=== PATIENT | male | born 2000 | race Caucasian/White ===

== ENCOUNTER 2021-04-06 15:56 | Emergency (ER) | payer BC, SELFPAY ==
[2021-04-06 16:01] VITALS: BP 146/93; PULSE 74; RESP 16; TEMP 37.1; O2SAT 99
--- NOTE | 2021-04-06 16:15 | DI.RAD_ITS ---
Exam(s) XR SHOULDER RT COMPLETE 2+V EXAM: XR SHOULDER RT COMPLETE 2+V CLINICAL HISTORY: pain after fall. TECHNIQUE: 2D digital imaging was performed. COMPARISON: No exams were available for comparison FINDINGS: Four views of the right shoulder reveal no evidence of fracture nor dislocation. No abnormal soft ti ssue calcifications. No degenerative changes in the glenohumeral and AC joints. Bone density normal . No osseous lesions. No os acromiale. IMPRESSION: No significant radiograph findings in the right shoulder. DATA REPOSITORY: RADIATION DOSE DELIVERED:
--- NOTE | 2021-04-06 16:15 | DI.RAD_ITS ---
Exam(s) XR ELBOW RT COMPLETE EXAM: XR ELBOW RT COMPLETE CLINICAL HISTORY: pain after fall. TECHNIQUE: 2D digital imaging was performed. COMPARISON: No exams were available for comparison FINDINGS: There is no evidence of fracture nor joint effusion. No swelling of the olecranon bursa. Radial hea d appears unremarkable as does the capitellum. Epicondyles unremarkable. Bone density normal. No o sseous lesions. IMPRESSION: DATA REPOSITORY: RADIATION DOSE DELIVERED:
--- NOTE | 2021-04-06 16:30 | ED.GENADUL_ITS ---
Discharge Plan Disposition Patient Disposition: HOME Condition: Improving Discharge Details Clinical Impression: Contusion of elbow, right Primary Care Provider: Unknown,Unknown ED Provider: Naveed Vargas Home Meds and New Rx's Prescriptions: Continued montelukast [Singulair] 10 mg Tablet 10 mg PO DAILY RF: 0 Breo Ellipta 200-25 mcg/dose Blister With Device 1 inh INHALATION DAILY RF: 0 Discharge Instructions Instructions: Contusion in Adults (ED) Additional Instructions: Please remove Pravin bandage tonight and then may replace again tomorrow morning. May also use Band-Aid as we discussed for dressing. You may develop increased muscular soreness over the next 24 hours. Tylenol and/or ibuprofen as needed for pain. Return to the ER for any acute concerns. Medical Decision Making Otherwise healthy 20-year-old male slipped and fell off a stool, landing on his right elbow suffering an abrasion and pain. His tetanus is up-to-date. Did not injure himself in any other way. He has mild tenderness to the right anterior shoulder and with palpation of the right elbow. Patient given analgesic and ice, wound cleansed and dressed, referred for x-ray. No evidence of bony injury. Patient had wound cleansed and dressed, is abrasion without evidence of laceration. Discussed with him home management he is stable for discharge HPI General Mode of arrival: ambulatory . Date/Time Provider Initiated Documentation: 04/06/21 16:12 . Limitations to Documentation: no limitations . Information obtained by: patient . History of Present Illness 20 year old M presents to the emergency department with the chief complaint of Fall, right elbow injury, described as moderate, Quality is described as dull and constant, and is localized to the right and upper extremity. Patient reports no radiation. No relieving factors improve symptom(s), No exacerbating factors reported . Patient notes no other symptoms.. Patient did receive the following treatments prior to arrival, none Related Data Home Medications Medication Instructions Recorded Confirmed Breo Ellipta 1 inh INHALATION DAILY 04/06/21 04/06/21 montelukast [Singulair] 10 mg PO DAILY 04/06/21 04/06/21 Allergies Allergy/AdvReac Type Severity Reaction Status Date / Time No Known Allergies Allergy Unverified 04/06/21 16:08 General Stated Complaint: Laceration ASHLEY: 4 Review of Systems Narrative: Denies other injury. No neck/back/chest pain. [facility] Social History Smoking/Tobacco Use Status: Never Smoking risk assessment performed?: Yes Alcohol Intake: current Alcohol Intake frequency: a few times a month Alcohol type: beer Substance use type: marijuana Exam Narrative Exam Narrative: GEN: awake, alert, oriented 3. Pleasant, well groomed, interactive. HEAD: Normocephalic, atraumatic EYES: PERRL, EOMI NECK: Full ROM, no ELIZABETH, no menigismus CHEST/RESP: Nontender EXT: Full ROM, pain with palpation right elbow. There is abrasion present on the dorsal surface of the right elbow. No pain with resisted supination. Distal motor and sensory function is normal. Mild tenderness right anterior shoulder. Motor 5 out of 5 throughout. Neuro: Grossly normal neurologic exam, conversant, interactive. Psych: Speech fluent, thoughts congruent, affect normal Course Vital Signs Vital signs: Vital Signs Temperature 37.1 C 04/06/21 16:01 Pulse 74 04/06/21 16:01 Respiratory Rate 16 04/06/21 16:01 Blood Pressure 146/93 H 04/06/21 16:01 Pulse Oximetry 99 04/06/21 16:01 Temperature 37.1 C 04/06/21 16:01 Temperature Source Skin 04/06/21 16:01 Pulse 74 04/06/21 16:01 Respiratory Rate 16 04/06/21 16:01 Respiratory Effort 04/06/21 16:06 Blood Pressure 146/93 H 04/06/21 16:01 Blood Pressure Position Sitting 04/06/21 16:01 Pulse Oximetry 99 04/06/21 16:01 Oxygen Delivery Method Room Air 04/06/21 16:01 Oxygen Flow Rate 0 04/06/21 16:01 Pain Level 8 04/06/21 16:06
[2021-04-06] MEDS: Ibuprofen 800 MG TAB PO (16:37)
--- NOTE | 2021-04-06 17:47 | DI.VRAD_ITS ---
PROCEDURE INFORMATION: Exam: XR Right Elbow Exam date and time: 04/06/2021 4:30 PM Age: 20 years old Clinical indication: Other: Pain after fall TECHNIQUE: Imaging protocol: XR Right elbow. Views: 3 or more views. COMPARISON: CR XR SHOULDER RT COMPLETE 2+V 04/06/2021 5:04 PM FINDINGS: Bones/joints: Normal. Soft tissues: Normal. IMPRESSION: No acute findings. Dictated and Authenticated by: Zain Patel MD. Ordering:HARLEEN Lucio MD
--- NOTE | 2021-04-06 17:48 | DI.VRAD_ITS ---
PROCEDURE INFORMATION: Exam: XR Right Shoulder Exam date and time: 04/06/2021 4:30 PM Age: 20 years old Clinical indication: Other: Pain after fall TECHNIQUE: Imaging protocol: XR Right shoulder. Views: 2 or more views. COMPARISON: No relevant prior studies available. FINDINGS: Bones/joints: Normal. Soft tissues: Normal. IMPRESSION: No acute findings. Dictated and Authenticated by: Zain Patel MD. Ordering:HARLEEN Lucio MD
== END 2021-04-06 17:58 | disposition home or self-care (01) ==
PROVIDERS: Emergency Provider Emergency Medicine
DX: S50.01XA Contusion of right elbow, initial encounter (principal); M25.511 Pain in right shoulder; W07.XXXA Fall from chair, initial encounter
CPT/HCPCS: 99284; 73030; 73080; 99283